=== PATIENT | female | born 1990 | race Caucasian/White ===

== ENCOUNTER 2018-08-14 09:34 | Outpatient (CLI) | payer OTHER ==
--- NOTE | 2018-08-14 12:40 | CT ---
FCT abdomen and pelvis with IV contrast INDICATION: History of left lower quadrant abdominal pain FINDINGS: There is a 1.6 cm involuting cyst within the left adnexa. There is mild free fluid in the p elliot. There is a normal appendix in the right lower quadrant of the abdomen. The bladder, rectum and perirectal soft tissues are normal appearing. There is a tiny hypodensity within the posterior right hepatic lobe that is difficult to characterize due to its size. This is on image 17 series 2. The pancreas, adrenal glands and kidneys appear within normal limits. There is calcified granuloma wi thin the spleen. No acute osseous abnormality is evident. IMPRESSION: 1. Suspected small involuting cyst within the left adnexa. 2. Mild free fluid in the pelvis 3. Tiny right hepatic lobe hypodensity difficult to characterize due to its size. 4. Findings of prior granulomatous disease
== END 2018-08-14 09:35 | disposition home or self-care (01) ==
LOC: SCSCT 09:34
PROVIDERS: ATTEND Physician Assistant Medical
DX: R10.32 Left lower quadrant pain (principal); K76.89 Other specified diseases of liver
CPT/HCPCS: 74177